=== PATIENT | male | born 1950 | race Caucasian/White ===

== ENCOUNTER 2019-04-16 14:13 | Emergency (ER) | payer MEDICARE ==
--- NOTE | 2019-04-16 14:39 | ED ---
Palpitations / Dysrhythmia - HPI Summary HPI Summary: Pt is a 68 y/o M presenting to the ED brought in by EMS for palpitations onset this morning. He states he was [place] the [place] [address] he began to feel lightheaded, diaphoretic, and his heart pounding like he was in [place]. It subsided for about ten minutes, then came back, which is when he called EMS. He denies chest pain and SOB. His rope tier is Dr. Cruz. - History of Current Complaint Chief Complaint: EDDysrhythmPalp Time Seen by Provider: 04/16/19 14:23 Hx Obtained From: Patient Onset/Duration: Sudden Onset, Lasting Minutes, Resolved Timing: Constant Severity Initially: Moderate Severity Currently: None Character: Fast, Pounding Aggravating: Nothing Alleviating: Nothing Associated Signs & Symptoms: Lightheadedness, Diaphoresis - Allergy/Home Medications Allergies/Adverse Reactions: Allergies Allergy/AdvReac Type Severity Reaction Status Date / Time No Known Allergies Allergy Verified 04/16/19 14:29 PMH/Surg Hx/FS Hx/Imm Hx Previously Healthy: Yes Endocrine/Hematology History: Denies: Hx Diabetes Cardiovascular History: Reports: Hx Angina, Hx Atrial Fibrillation, Hx Hypercholesterolemia, Hx Hypertension Denies: Hx Coronary Artery Disease, Hx Myocardial Infarction, Hx Valvular Heart Disease Respiratory History: Reports: Other Respiratory Problems/Disorders - SLEEP APNEA Denies: Hx Asthma, Hx Chronic Obstructive Pulmonary Disease (COPD) History: Denies: Hx Renal Disease Infectious Disease History: No Infectious Disease History: Denies: Traveled Outside the [place] in Last 30 Days - Family History Known Family History: Negative: Hypertension - Social History Alcohol Use: None Hx Substance Use: No Substance Use Type: Reports: None Hx Tobacco Use: No Smoking Status (MU): Never Smoked Tobacco Review of Systems Positive: Skin Diaphoresis Positive: Palpitations. Negative: Chest Pain Negative: Shortness Of Breath Neurological: Other - lightheaded All Other Systems Reviewed And Are Negative: Yes Physical Exam - Summary Physical Exam Summary: Appearance: The patient is well-nourished in no acute distress and in no acute pain. Skin: The skin is warm and dry and skin color reflects adequate perfusion. HEENT: The head is normocephalic and atraumatic. The pupils are equal and reactive. The conjunctivae are clear and without drainage. Nares are patent and without drainage. Mouth reveals moist mucous membranes and the throat is without erythema and exudate. The external ears are intact. The ear canals are patent and without drainage. The tympanic membranes are intact. Neck: The neck is supple with full range of motion and non-tender. There are no carotid bruits. There is no neck vein distension. Respiratory: Chest is non-tender. Lungs are clear to auscultation and breath sounds are symmetrical and equal. Cardiovascular: Heart is regular rate and rhythm. There is no murmur or rub auscultated. There is no peripheral edema and pulses are symmetrical and equal. Abdomen: The abdomen is soft and non-tender. There are normal bowel sounds heard in all four quadrants and there is no organomegaly palpated. Musculoskeletal: There is no back tenderness noted. Extremities are non-tender with full range of motion. There is good capillary refill. There is no peripheral edema or calf tenderness elicited. Neurological: Patient is alert and oriented to person, place and time. The patient has symmetrical motor strength in all four extremities. Cranial nerves are grossly intact. Deep tendon reflexes are symmetrical and equal in all four extremities. Psychiatric: The patient has an appropriate affect and does not exhibit any anxiety or depression. Triage Information Reviewed: Yes Vital Signs On Initial Exam: Initial Vitals Temp Pulse Resp BP Pulse Ox 97.2 F 75 18 193/80 100 04/16/19 14:21 04/16/19 14:21 04/16/19 14:21 04/16/19 14:21 04/16/19 14:21 Vital Signs Reviewed: Yes Diagnostics - Vital Signs Vital Signs Temp Pulse Resp BP Pulse Ox 04/16/19 14:21 97.2 F 75 18 193/80 100 - Laboratory Result Diagrams: 04/16/19 14:39 04/16/19 14:39 Lab Statement: Any lab studies that have been ordered have been reviewed, and results considered in the medical decision making process. - EKG 1416 Cardiac Rate: NL - 75bpm EKG Rhythm: Sinus Rhythm ST Segment: Normal Ectopy: None Summary of EKG Findings: EKG at 1416 shows NSR at 75bpm. Course/Dx - Course Course Of Treatment: Mr. Mcnamara was nontoxic in appearance is stable vital signs on arrival. He was kept on a monitor while EKG and labs including a delayed troponin and d-dimer were obtained. These were negative and his blood pressure was running moderately high. I recommended follow-up with his PCP and reassured him that nothing immediately dangerous was occurring. - Diagnoses Provider Diagnoses: Near syncope Discharge - Sign-Out/Discharge Documenting (check all that apply): Patient Departure Patient Received Moderate/Deep Sedation with Procedure: No - Discharge Plan Condition: Stable Disposition: HOME Referrals: Brian MO,Kenny Davidson [Primary Care Provider] - Additional Instructions: Please follow up with your primary care provider within the next 2-3 days. Return to the ED with any new or worsening symptoms. - Billing Disposition and Condition Condition: STABLE Disposition: Home - Attestation Statements Document Initiated by Scribe: Yes Documenting Scribe: Summer Parra Provider For Whom Greta is Documenting (Include Credential): Eugene Larsen MD. Scribe Attestation: Summer Schmidt, scribed for Eugene Larsen MD. on 04/16/19 at 1832. Scribe Documentation Reviewed: Yes Provider Attestation: The documentation as recorded by the Summer hernandez accurately reflects the service I personally performed and the decisions made by me, Eugene Larsen MD. Status of Scribe Document: Viewed
--- OUTSIDE RECORDS SUMMARY | 2019-04-16 14:52 | XMS REPORT | Continuity of Care Document ---
:1950 External Reference #:[id number] Author Name Meliza Dave Care Team Providers Name Role Phone Kayode Torres MD Primary Care Physician Unavailable Payers Date Identification Numbers Payment Provider Subscriber Effective: 2015 Policy Number: [id number] [employer] Nasima Magana Expires: 2017 PayID: [id number] [address] [address] [place] [address] Effective: 2017 Policy Number: [id number] [employer] Nasima Magana PayID: [id number] [address] [address] Attn: [place] [address] Problems Active Problems Provider Date Atrial fibrillation Robin Cruz M.D. Onset: 10/23/2011 Palpitations Robin Cruz M.D. Onset: 10/23/2011 Benign essential hypertension Robin Cruz M.D. Onset: 07/18/2013 Chest pain Robin Cruz M.D. Onset: 02/02/2014 Difficulty breathing Robin Cruz M.D. Onset: 02/02/2014 Obstructive sleep apnea syndrome Emilee Hodges MD Onset: 03/13/2015 Acute sinusitis Emilee Hodges MD Onset: 03/13/2015 Cough Wendie Bryan DNP, RN, REFUSE COLLECTOR SUPERVISOR- Onset: 03/30/2018 Family History Date Family Member(s) Observation Comments General non-contribitory Father due to Cancer () Mother Alive And Well Siblings 2 healthy siblings First Sister Alive And Well Social History Type Date Description Comments Sex Unknown Marital Status 2 adult children. Lives With Occupation [employer] retired 2015 Tobacco Use Start: Unknown Never Smoked Cigarettes ETOH Use Denies alcohol use Recreational Drug Use Denies Drug Use Tobacco Use Start: Unknown Patient has never smoked Smoking Status Reviewed: 04/12/19 Patient has never smoked Exercise Type/Frequency Exercises rarely Allergies, Adverse Reactions, Alerts Description No Known Drug Allergies Medications Active Medications SIG Qnty Indications Ordering Provider Date Flecainide Acetate take one tablet 180tabs Robin Benítez 02/04/2016 50mg by mouth twice Mandie Cruz Tablets daily Digoxin take one tablet 90tabs Robin Benítez 03/29/2014 125mcg Tablets by mouth once Mandie Cruz daily Potassium Chloride ER 1/2 by mouth 45tabs Robin Benítez 06/25/2011 every day Mandie Cruz 20Meq Tablets ER Atenolol 1/2 tablet twice 90tabs Robin Benítez 04/04/2011 25mg Tablets a day (resumed Mandie Cruz twice a day dosing 03/30/17) History Medications Ibnicholas Benítez 12/29/2018 - 90mg Capsules ER Mandie Cruz 04/11/2019 Simethicone tab by mouth 90caps Emilee Hodges, 11/05/2015 - 180mg every 6 hours 08/24/2017 Capsules as needed Advair HFA 2 puff twice a 2units R06.00 Emilee Hodges, 03/13/2015 - day 02/25/2017 115-21mcg/Act Aerosol Digoxin 1 po qd 30tabs Robin Benítez 04/09/2011 - 0.125mg Tablets Mandie Cruz 03/29/2014 Multaq 1 tablet by 30taramses Benítez 01/22/2011 - 400mg Tablets mouth every Mandie Cruz 01/31/2016 morning Multaq 1 po bid Robin Benítez 01/15/2011 - 400mg Tablets Mandie Cruz 01/22/2011 Cardizem CD 1 po qd 30caps Robin Benítez 07/16/2010 - 120mg Caps Mandie Cruz 07/22/2010 ER 24HR Aspir-81 1 po qd 30tabs Robin Benítez 07/16/2010 - 81mg Tablets Mandie Cruz 08/31/2018 Lisinopril 1 po qd 90tabs Robin Benítez 12/19/2009 - 5mg Tablets Mandie Cruz 07/16/2010 Nexium 1 po bid 90units Robin Benítez 12/19/2009 - 40mg Packet Mandie Cruz 07/25/2010 Atenolol 1 po bid 120tabs Robin Benítez 06/01/2009 - 25mg Tablets Mandie Cruz 04/04/2011 Atenolol 1 po qd 90tabs Robin Benítez 12/28/2007 - 25mg Tablets Mandie Cruz 06/01/2009 Aspirin 1 PO qd 30units Robin Benítez 11/30/2007 - 81mg Chewtabs Mandie Cruz 09/12/2008 Atenolol 1 PO qd 30tabs Robin Benítez 11/30/2007 - 25mg Tablets Mandie Cruz 12/28/2007 Xanax 1 PO qd prn 90tabs Robin Benítez 11/05/2007 - 0.25mg Tablets Mandie Cruz 12/19/2008 KCL 1 po qd 30units Robin Benítez - 20Meq Mandie Cruz 07/16/2010 Xanax 1 by mouth 30tabs Kayode Gonzalez - 0.25mg Tablets three times a Mandie Fuentes 08/31/2018 day as needed Dexalent 1 po qd Unknown - 60mg Capsules 03/20/2011 Multivitamins 1 po qd 90tabs Unknown - Tablets 08/31/2018 Augmentin po bid 20tabs Unknown - 875-125mg 09/15/2012 Tablets Viagra 1 by mouth as 6tabs Kayode F. - 50mg Tablets needed Mandie Fuentes 08/31/2018 Omeprazole 1 by mouth Unknown - 20mg every day 04/18/[address] Mattson CPT Code Status Date Vaccine Lot # [id number] Given 07/20/2014 Fluvirin Im 3Yrs And Older Vital Signs Date Vital Result Comment 04/12/2019 2:21pm Height 72 inches 6'0" Weight 212.25 lb with boots Heart Rate 66 /min radial, extra beats BP Systolic Sitting 152 mmHg LA, reg cuff BP Diastolic Sitting 76 mmHg LA, reg cuff BP Systolic Standing 152 mmHg LA, reg cuff BP Diastolic Standing 76 mmHg LA, reg cuff BMI (Body Mass Index) 28.8 kg/m2 Ejection Fraction 55%-60% echo 02/01/15 09/01/2018 10:31am Height 72 inches 6'0" Weight 207.38 lb Heart Rate 68 /min BP Systolic Sitting 144 mmHg Lue large cuff BP Diastolic Sitting 68 mmHg Lue large cuff Respiratory Rate 16 /min O2 % BldC Oximetry 97 % BMI (Body Mass Index) 28.1 kg/m2 Neck Circumference in inches 16.5 04/19/2018 3:01pm Weight 206.00 lb Heart Rate 76 /min BP Systolic 180 mmHg left arm reg BP Diastolic 78 mmHg left arm reg BP Systolic Sitting 156 mmHg la sit repeat. BP Diastolic Sitting 62 mmHg la sit repeat. 03/30/2018 8:55am Height 72 inches 6'0" Weight 205.12 lb Heart Rate 60 /min BP Systolic Sitting 140 mmHg Lue large cuff BP Diastolic Sitting 72 mmHg Lue large cuff Respiratory Rate 18 /min O2 % BldC Oximetry 97 % On Ra BMI (Body Mass Index) 27.8 kg/m2 08/25/2017 8:16am Height 72 inches 6'0" Weight 206.00 lb with boots Heart Rate 64 /min BP Systolic Sitting 160 mmHg LA reg cuff BP Diastolic Sitting 76 mmHg LA reg cuff BP Systolic Standing 132 mmHg la repeat sitting BP Diastolic Standing 67 mmHg la repeat sitting BMI (Body Mass Index) 27.9 kg/m2 Ejection Fraction 55% echo 02/26/17 02/26/2017 8:03am Height 72 inches 6'0" Weight 201.75 lb with shoes Heart Rate 60 /min BP Systolic Sitting 142 mmHg LA reg cuff BP Diastolic Sitting 68 mmHg LA reg cuff BMI (Body Mass Index) 27.4 kg/m2 12/10/2015 11:28am Height 72 inches 6'0" Weight 207.25 lb with shoes Heart Rate 58 /min BP Systolic Sitting 140 mmHg LA reg cuff BP Diastolic Sitting 70 mmHg LA reg cuff Respiratory Rate 16 /min BMI (Body Mass Index) 28.1 kg/m2 Ejection Fraction 55-60% date 02/01/15 ECHO 09/11/2015 8:57am Height 72 inches 6'0" Weight 200.00 lb Heart Rate 61 /min BP Systolic Sitting 142 mmHg BP Diastolic Sitting 78 mmHg Respiratory Rate 16 /min O2 % BldC Oximetry 8 % BMI (Body Mass Index) 27.1 kg/m2 07/11/2015 8:02am Height 72 inches 6'0" Heart Rate 54 /min BP Systolic 138 mmHg BP Diastolic 64 mmHg Respiratory Rate 14 /min O2 % BldC Oximetry 99 % 05/30/2015 9:07am Heart Rate 62 /min BP Systolic 152 mmHg BP Diastolic 62 mmHg Respiratory Rate 14 /min O2 % BldC Oximetry 98 % 04/16/2015 9:38am Height 72 inches 6'0" Weight 200.00 lb Heart Rate 68 /min BP Systolic 160 mmHg BP Diastolic 80 mmHg Respiratory Rate 14 /min O2 % BldC Oximetry 96 % BMI (Body Mass Index) 27.1 kg/m2 Neck Circumference in inches 15.5 03/13/2015 8:25am Height 72 inches 6'0" Weight 200.00 lb Heart Rate 62 /min BP Systolic Sitting 130 mmHg BP Diastolic Sitting 78 mmHg Respiratory Rate 18 /min Body Temperature 98.1 F O2 % BldC Oximetry 98 % BMI (Body Mass Index) 27.1 kg/m2 01/25/2015 2:38pm Height 72 inches 6'0" Weight 202.00 lb Heart Rate 58 /min BP Systolic Sitting 158 mmHg left arm, reg cuff BP Diastolic Sitting 82 mmHg left arm, reg cuff Respiratory Rate 16 /min BMI (Body Mass Index) 27.4 kg/m2 02/02/2014 11:11am Height 72 inches 6'0" Weight 194.00 lb with shoes Heart Rate 58 /min 56 sit and stand HR reg BP Systolic Sitting 146 mmHg LA reg cuff BP Diastolic Sitting 76 mmHg LA reg cuff BP Systolic Standing 150 mmHg LA reg cuff BP Diastolic Standing 80 mmHg LA reg cuff Respiratory Rate 16 /min BMI (Body Mass Index) 26.3 kg/m2 07/18/2013 1:18pm Height 72 inches 6'0" Weight 193.00 lb Heart Rate 59 /min BP Systolic 144 mmHg BP Diastolic 62 mmHg BMI (Body Mass Index) 26.2 kg/m2 09/15/2012 11:11am Height 72 inches 6'0" Weight 199.00 lb Heart Rate 66 /min BP Systolic 130 mmHg BP Diastolic 70 mmHg Respiratory Rate 16 /min BMI (Body Mass Index) 27.0 kg/m2 10/23/2011 8:51am Height 72 inches 6'0" Weight 193.00 lb Heart Rate 61 /min BP Systolic 120 mmHg BP Diastolic 62 mmHg BMI (Body Mass Index) 26.2 kg/m2 03/20/2011 3:16pm Height 72 inches 6'0" Weight 196.00 lb Heart Rate 60 /min BP Systolic 130 mmHg BP Diastolic 70 mmHg Respiratory Rate 16 /min BMI (Body Mass Index) 26.6 kg/m2 10/30/2010 11:36am Height 72 inches 6'0" Weight 196.00 lb Heart Rate 62 /min BP Systolic 120 mmHg BP Diastolic 70 mmHg Respiratory Rate 16 /min BMI (Body Mass Index) 26.6 kg/m2 07/16/2010 1:51pm Height 72 inches 6'0" Weight 190.00 lb Heart Rate 78 /min BP Systolic Sitting 110 mmHg BP Diastolic Sitting 60 mmHg BP Systolic Standing 124 mmHg BP Diastolic Standing 64 mmHg BMI (Body Mass Index) 25.8 kg/m2 12/19/2009 2:25pm Height 72 inches 6'0" Heart Rate 63 /min BP Systolic Sitting 140 mmHg BP Diastolic Sitting 76 mmHg 11/12/2009 2:13pm Height 72 inches 6'0" Weight 200.00 lb BMI (Body Mass Index) 27.1 kg/m2 12/19/2008 1:47pm Height 72 inches 6'0" Weight 191.00 lb Heart Rate 70 /min BP Systolic Sitting 132 mmHg BP Diastolic Sitting 60 mmHg BP Systolic Standing 120 mmHg BP Diastolic Standing 70 mmHg BMI (Body Mass Index) 25.9 kg/m2 09/12/2008 2:20pm Height 72 inches 6'0" Weight 199.00 lb Heart Rate 80 /min BP Systolic Sitting 130 mmHg BP Diastolic Sitting 70 mmHg BP Systolic Standing 130 mmHg BP Diastolic Standing 70 mmHg BMI (Body Mass Index) 27.0 kg/m2 03/14/2008 3:58pm Height 72 inches 6'0" Weight 189.00 lb Heart Rate 72 /min BP Systolic Sitting 140 mmHg BP Diastolic Sitting 70 mmHg BP Systolic Standing 150 mmHg BP Diastolic Standing 70 mmHg Respiratory Rate 16 /min BMI (Body Mass Index) 25.6 kg/m2 02/14/2008 3:39pm Height 72 inches 6'0" Weight 189.00 lb Heart Rate 64 /min BP Systolic Sitting 150 mmHg L BP Diastolic Sitting 80 mmHg L BMI (Body Mass Index) 25.6 kg/m2 Results Test Date Facility Test Result H/L Range Note Comp Metabolic Panel 01/06/2018 [facility] Sodium 138 mmol/L Low 139-[address] [place] [address] [phone] Potassium 4.4 mmol/L N 3.5-5.0 Chloride 103 mmol/L N 101-111 Co2 Carbon Dioxide 30 mmol/L N 22-32 Anion Gap 5 mmol/L N 2-11 Glucose 96 mg/dL N 70-100 Blood Urea Nitrogen 17 mg/dL N 6-24 Creatinine 0.92 mg/dL N 0.67-1.17 BUN/Creatinine Ratio 18.5 N 8-20 Calcium 9.9 mg/dL N 8.6-10.3 Total Protein 7.0 g/dL N 6.4-8.9 Albumin 4.8 g/dL N 3.2-5.2 Globulin 2.2 g/dL N 2-4 Albumin/Globulin Ratio 2.2 N 1-3 Total Bilirubin 0.80 mg/dL N 0.2-1.0 Alkaline Phosphatase 88 U/L N 34-104 Alt 30 U/L N 7-52 Ast 21 U/L N 13-39 Egfr Non- 82.6 >60 Egfr 106.2 >60 1 Order 01/06/2018 [employer] In-House EKG <pending> Laboratory test 01/06/2018 [facility] Digoxin 0.5 ng/ml Low 0.8-2.[address] [place] [address] [phone] CBC Auto Diff 01/06/2018 [facility] White Blood 7.1 10^3/uL N 3.5-10. [address] [place] [address] [phone] Red Blood Count 5.01 10^6/uL N 4.0-5.4 Hemoglobin 14.7 g/dL N 14.0-18.0 Hematocrit 42 % N 42-52 Mean Corpuscular Volume 83 fL N 80-94 Mean Corpuscular Hemoglobin 29 pg N 27-31 Mean Corpuscular HGB Conc 35 g/dL N 31-36 Red Cell Distribution Width 13 % N 10.5-15 Platelet Count 203 10^3/uL N 150-450 Mean Platelet Volume 8.6 um3 N 7.4-10.4 Abs Neutrophils 3.8 10^3/uL N 1.5-7.7 Abs Lymphocytes 2.2 10^3/uL N 1.0-4.8 Abs Monocytes 0.7 10^3/uL N 0-0.8 Abs Eosinophils 0.3 10^3/uL N 0-0.6 Abs Basophils 0.1 10^3/uL N 0-0.2 Abs Nucleated RBC 0 10^3/uL Granulocyte % 53.6 % N 38-83 Lymphocyte % 31.4 % N 25-47 Monocyte % 10.0 % High 0-7 Eosinophil % 4.0 % N 0-6 Basophil % 1.0 % N 0-2 Nucleated Red Blood Cells % 0 Laboratory test 01/06/2018 [facility] Magnesium 2.2 mg/dL N 1.9-2.[address] [place] [address] [phone] Laboratory test 06/11/2017 [facility] Digoxin 0.3 ng/ml Low 0.8-2.0 [address] [place] [address] [phone] Laboratory test 05/27/2016 [facility] Surgical SEE RESULT 3 , [address] [place] [address] Order [phone] CBC Auto Diff 04/10/2016 [facility] White Blood 6.6 N 3.5- 10.[address] Count 10^3/uL [place], [place] [id number] [phone] Red Blood Count 4.91 10^6/uL N 4.0-5.4 Hemoglobin 14.2 g/dL N 14.0-18.0 Hematocrit 41 % Low 42-52 Mean Corpuscular Volume 84 fL N 80-94 Mean Corpuscular Hemoglobin 29 pg N 27-31 Mean Corpuscular HGB Conc 34 g/dL N 31-36 Red Cell Distribution Width 13 % N 10.5-15 Platelet Count 201 10^3/uL N 150-450 Mean Platelet Volume 9 um3 N 7.4-10.4 Abs Neutrophils 3.8 10^3/uL N 1.5-7.7 Abs Lymphocytes 2.0 10^3/uL N 1.0-4.8 Abs Monocytes 0.5 10^3/uL N 0-0.8 Abs Eosinophils 0.2 10^3/uL N 0-0.6 Abs Basophils 0 10^3/uL N 0-0.2 Abs Nucleated RBC 0 10^3/uL N Granulocyte % 58.5 % N 38-83 Lymphocyte % 30.0 % N 25-47 Monocyte % 7.5 % N 1-9 Eosinophil % 3.3 % N 0-6 Basophil % 0.7 % N 0-2 Nucleated Red Blood Cells % 0.1 N Comp Metabolic Panel 04/10/2016 [facility] Sodium 137 mmol/L N 133-145 [address] [place] [address] [phone] Potassium 4.3 mmol/L N 3.5-5.0 Chloride 103 mmol/L N 101-111 Co2 Carbon Dioxide 27 mmol/L N 22-32 Anion Gap 7 mmol/L N 2-11 Glucose 104 mg/dL High 70-100 Blood Urea Nitrogen 18 mg/dL N 6-24 Creatinine 0.96 mg/dL N 0.67-1.17 BUN/Creatinine Ratio 18.8 N 8-20 Calcium 9.7 mg/dL N 8.6-10.3 Total Protein 7.4 g/dL N 6.4-8.9 Albumin 4.5 g/dL N 3.2-5.2 Globulin 2.9 g/dL N 2-4 Albumin/Globulin Ratio 1.6 N 1-3 Total Bilirubin 1.00 mg/dL N 0.2-1.0 Alkaline Phosphatase 64 U/L N 34-104 Alt 23 U/L N 7-52 Ast 19 U/L N 13-39 Egfr Non- 79.1 N >60 Egfr 101.7 N >60 5 Laboratory test finding 04/10/2016 [facility] Lipase 24 U/L N 11.0-82.[address] [place] [address] [phone] C Reactive Protein < 1.00 mg/L N < 5.00 6 Lactic Acid 1.4 mmol/L N 0.5-2.0 7 Urinalysis Profile 04/08/2016 [facility] Urine Color Yellow N [address] [place] [address] [phone] Urine Appearance Clear N Urine Specific [place] 1.018 N 1.010-1.030 Urine pH 6.0 N 5-9 Urine Urobilinogen Negative N Negative Urine Ketones Negative N Negative Urine Protein Negative N Negative Urine Leukocytes Negative N Negative Urine Blood Negative N Negative Urine Nitrite Negative N Negative Urine Bilirubin Negative N Negative Urine Glucose Negative N Negative Laboratory test 04/08/2016 [facility] Lactic Acid 1.0 mmol/L N 0.5-2.0 [address] [place] [address] [phone] CBC Auto Diff 04/08/2016 [facility] White Blood 7.1 10^3/uL N 3.5-10.[address] [place] [address] [phone] Red Blood Count 5.01 10^6/uL N 4.0-5.4 Hemoglobin 14.6 g/dL N 14.0-18.0 Hematocrit 42 % N 42-52 Mean Corpuscular Volume 84 fL N 80-94 Mean Corpuscular Hemoglobin 29 pg N 27-31 Mean Corpuscular HGB Conc 35 g/dL N 31-36 Red Cell Distribution Width 13 % N 10.5-15 Platelet Count 212 10^3/uL N 150-450 Mean Platelet Volume 9 um3 N 7.4-10.4 Abs Neutrophils 4.5 10^3/uL N 1.5-7.7 Abs Lymphocytes 2.0 10^3/uL N 1.0-4.8 Abs Monocytes 0.5 10^3/uL N 0-0.8 Abs Eosinophils 0.1 10^3/uL N 0-0.6 Abs Basophils 0.1 10^3/uL N 0-0.2 Abs Nucleated RBC 0 10^3/uL N Granulocyte % 63.0 % N 38-83 Lymphocyte % 28.0 % N 25-47 Monocyte % 6.6 % N 1-9 Eosinophil % 1.5 % N 0-6 Basophil % 0.9 % N 0-2 Nucleated Red Blood Cells % 0 N Comp Metabolic Panel 04/08/2016 [facility] Sodium 133 mmol/L N 133-[address] [place] [address] [phone] Potassium 4.6 mmol/L N 3.5-5.0 Chloride 99 mmol/L Low 101-111 Co2 Carbon Dioxide 27 mmol/L N 22-32 Anion Gap 7 mmol/L N 2-11 Glucose 104 mg/dL High 70-100 Blood Urea Nitrogen 15 mg/dL N 6-24 Creatinine 0.99 mg/dL N 0.67-1.17 BUN/Creatinine Ratio 15.2 N 8-20 Calcium 9.8 mg/dL N 8.6-10.3 Total Protein 7.6 g/dL N 6.4-8.9 Albumin 4.6 g/dL N 3.2-5.2 Globulin 3.0 g/dL N 2-4 Albumin/Globulin Ratio 1.5 N 1-3 Total Bilirubin 1.20 mg/dL High 0.2-1.0 Alkaline Phosphatase 66 U/L N 34-104 Alt 22 U/L N 7-52 Ast 19 U/L N 13-39 Egfr Non- 76.3 N >60 Egfr 98.2 N >60 9 Laboratory test finding 04/08/2016 [facility] Lipase 57 U/L N 11.0-82.[address] [place] [address] [phone] C Reactive Protein 1.29 mg/L N < 5.00 10 CBC Auto Diff 01/29/2015 [facility] White Blood 8.2 10^3/uL N 4.8-10.[address] [place] [address] [phone] Red Blood Count 5.03 10^6/uL N 4.0-5.4 Hemoglobin 15.4 g/dL N 14.0-18.0 Hematocrit 43 % N 42-52 Mean Corpuscular Volume 86 fL N 80-94 Mean Corpuscular Hemoglobin 31 pg N 27-31 Mean Corpuscular HGB Conc 36 g/dL N 31-36 Red Cell Distribution Width 13 % N 10.5-15 Platelet Count 201 10^3/uL N 150-450 Mean Platelet Volume 9 um3 N 7.4-10.4 Abs Neutrophils 5.2 10^3/uL N 1.5-7.7 Abs Lymphocytes 2.0 10^3/uL N 1.0-4.8 Abs Monocytes 0.7 10^3/uL N 0-0.8 Abs Eosinophils 0.3 10^3/uL N 0-0.6 Abs Basophils 0.1 10^3/uL N 0-0.2 Abs Nucleated RBC 0.03 10^3/uL N Granulocyte % 62.9 % N 38-83 Lymphocyte % 24.4 % Low 25-47 Monocyte % 8.4 % N 1-9 Eosinophil % 3.7 % N 0-6 Basophil % 0.6 % N 0-2 Nucleated Red Blood Cells % 0.4 N Laboratory test 01/29/2015 [facility] B Type Natriuretic 40 pg/ mL N [address] [place] [address] [phone] Erythrocyte Sed Rate 10 mm/Hr N 0-20 13 Iron & Iron Binding 01/29/2015 [facility] Iron 144 g/dL N 50 -[address] [place] [address] [phone] Unsaturated Iron Binding 233 g/dL N Total Iron Binding Capacity 377 g/dL N 250-450 % Iron Saturation 38 % N 15-55 Lipid Panel - 01/29/2015 [facility] Creatine Kinase 115 U/L N 10-223 [address] [place] [address] [phone] Comp Metabolic 01/29/2015 [facility] Sodium 134 N 133-[address] mmol/[place] [address] [phone] Potassium 4.3 mmol/L N 3.5-5.0 Chloride 99 mmol/L Low 101-111 Co2 Carbon Dioxide 29 mmol/L N 22-32 Anion Gap 6 mmol/L N 2-11 Glucose 107 mg/dL High 70-100 Blood Urea Nitrogen 15 mg/dL N 6-24 Creatinine 0.96 mg/dL N 0.67-1.17 BUN/Creatinine Ratio 15.6 N 8-20 Calcium 9.5 mg/dL N 8.6-10.3 Total Protein 6.8 g/dL N 6.4-8.9 Albumin 4.7 g/dL N 3.2-5.2 Globulin 2.1 g/dL N 2-4 Albumin/Globulin Ratio 2.2 N 1-3 Total Bilirubin 1.10 mg/dL High 0.2-1.0 Alkaline Phosphatase 71 U/L N 34-104 Alt 32 U/L N 7-52 Ast 25 U/L N 13-39 Egfr Non- 79.4 N >60 Egfr 102.1 N >60 15 Lipid Profile 01/29/2015 [facility] Triglycerides 184 mg/dL N 16 (Trig/Chol/HDL) [address] [place] [address] [phone] Cholesterol 196 mg/dL N 17 HDL Cholesterol 41.6 mg/dL N 18 LDL Cholesterol 118 mg/dL N 19 Laboratory test 01/29/2015 [facility] Magnesium 2.0 mg/dL N 1.9-2.7 20 finding [address] [place] [address] [phone] C Reactive Protein 1.87 mg/L N < 5.00 21 TSH (Thyroid Stimulating Horm) 1.72 IU/mL N 0.34-5.60 22 Lyme Disease Serology Negative N Negative 23 Katie (Anti-Nuclear AB) Screen Negative N Negative 24 Rheumatoid Factor <15 IU/mL N <15 25 Beta Hydroxy Butyrate 0.1 mmol/L N <0.4 26 Laboratory test 08/11/2014 [facility] Digoxin 0.4 ng/ml Low 0.8-2.0 finding [address] [place] [address] [phone] Magnesium 2.1 mg/dL N 1.9-2.7 Basic Metabolic Panel 04/10/2011 [facility] Sodium 141 mmol/L 135-145 [address] [place] [address] [phone] Potassium 4.4 mmol/L 3.5-5.0 Chloride 108 mmol/L 101-111 Co2 (Carbon Dioxide) 28.0 mmol/L 22-32 Anion Gap 5.0 mmol/L 2-11 27 Glucose 96 mg/dL 70-100 BUN 11 mg/dL 6-24 Creatinine 0.90 mg/dL 0.50-1.40 One Over Creatinine 1.10 BUN/Creatinine Ratio 12.2 8-20 Calcium 9.4 mg/dL 8.1-9.9 eGFR Non- 86.7 > 60 eGFR 111.5 > 60 28 CBC Auto Diff 04/10/2011 [facility] White Blood 6.0 CUMM 4.8- 10.8 [address] [facility] [place] [address] [phone] Red Cell Count 4.59 CUMM Low 4.6-6.2 Hemoglobin 13.5 g/dL Low 14.0-18.0 Hematocrit 40 % Low 42-52 Mean Corpuscular Volume 86 um3 80-94 Mean Corpuscular Hemoglob 29 pg 27-31 Mean Corpuscular HGB Cone 34 g/dL 32-36 Redcell Distribution WDTH 13 % 10.5-15 Platelet Count 205 CUMM 150-450 Mean Platelet Volume 9.0 um3 7.4-10.4 Gran % 50.7 % 38-83 Lymph % 34.5 % 25-47 Mononuclear % 9.5 % High 1-9 Eosinophil % 4.6 % 0-6 Basophil % 0.7 % 0-2 Abs Lymphs 2.1 1.0-4.8 Abs Mononuclear 0.6 0-0.8 Absolute Neutrophil Count 3.0 1.5-7.7 Abs Eosinophils 0.3 0-0.6 Abs Basophils 0 0-0.2 Laboratory test 04/10/2011 [facility] TSH 0.85 MIU/ML 0.34- 5.60 finding [address] [place] [address] [phone] Liver Function 02/18/2011 [facility] Total Protein 6.3 GM/DL 6.2-8.1 Panel [address] [place] [address] [phone] Albumin 4.2 GM/DL 3.6-5.4 Globulin 2.1 GM/DL 2-4 Albumin/Globulin Ratio 2.0 1-3 Bilirubin Total 1.2 mg/dL 0.4-1.5 29 Bilirubin Direct 0.1 mg/dL 0.1-0.5 Indirect Bilirubin 1.1 mg/dL High 0.3-1.0 30 Alkaline Phosphatase 69 U/L 39-117 Alt (SGPT) 20 U/L 17-63 Ast (Sgot) 19 U/L 12-42 Lipid Profile 02/18/2011 [facility] Triglyceride 97 mg/dL 40- 200 (Trig/Chol/HDL) [address] [place] [address] [phone] Cholesterol 171 mg/dL Less Than 200 31 High Density Lipoprotein 44 mg/dL 40-60 32 Cholesterol/HDL Ratio 3.89 AVERAGE 1-4.97 Low Density Lipoprotein 108 mg/dL High Less Than 100 33 Basic Metabolic Panel 01/23/2010 [facility] Sodium 136 mmol/L 135-[address] [place] [address] [phone] Potassium 4.3 mmol/L 3.5-5.0 Chloride 102 mmol/L 101-111 Co2 (Carbon Dioxide) 28.0 mmol/L 22-32 Anion Gap 6.0 mmol/L 2-11 34 Glucose 97 mg/dL 70-100 35 BUN 13 mg/dL 6-24 Creatinine 0.60 mg/dL 0.50-1.40 One Over Creatinine 1.60 BUN/Creatinine Ratio 21.7 High 8-20 Calcium 9.8 mg/dL 8.1-9.9 36 eGFR Non- 147.6 > 60 eGFR 178.6 > 60 37 CBC With 01/03/2010 [facility] White Blood 5.0 CUMM 4.8-10.8 Electronic Diff [address] [place] [address] [phone] Red Cell Count 4.73 CUMM 4.6-6.2 Hemoglobin 14.0 g/dL 14.0-18.0 Hematocrit 40 % Low 42-52 Mean Corpuscular Volume 84 um3 80-94 Mean Corpuscular Hemoglob 30 pg 27-31 Mean Corpuscular HGB Cone 35 g/dL 32-36 Redcell Distribution WDTH 13 % 10.5-15 Platelet Count 189 CUMM 150-450 Mean Platelet Volume 8.6 um3 7.4-10.4 Gran % 57.9 % 38-83 Lymph % 24.8 % Low 25-47 Mononuclear % 12.9 % High 1-9 Eosinophil % 3.8 % 0-6 Basophil % 0.6 % 0-2 Abs Lymphs 1.2 1.0-4.8 Abs Mononuclear 0.7 0-0.8 Absolute Neutrophil Count 2.9 1.5-7.7 Abs Eosinophils 0.2 0-0.6 Abs Basophils 0 0-0.2 Laboratory test 01/03/2010 [facility] TSH 1.27 MIU/ML 0.34- 5.[address] [place] [address] [phone] Basic Metabolic 01/03/2010 [facility] Sodium 133 mmol/L Low 135-145 Panel [address] [place] [address] [phone] Potassium 4.2 mmol/L 3.5-5.0 Chloride 99 mmol/L Low 101-111 Co2 (Carbon Dioxide) 29.0 mmol/L 22-32 Anion Gap 5.0 mmol/L 2-11 38 Glucose 105 mg/dL High 70-100 39 BUN 13 mg/dL 6-24 Creatinine 0.90 mg/dL 0.50-1.40 One Over Creatinine 1.10 BUN/Creatinine Ratio 14.4 8-20 Calcium 9.5 mg/dL 8.1-9.9 40 eGFR Non- 92.4 > 60 eGFR 111.9 > 60 41 Iron & Iron Binding 01/03/2010 [facility] Iron Total 94 g/dL 45-182 Capacity [address] [place] [address] [phone] Unsaturated Iron Binding 278 g/dL Total Iron Binding Capacity 372 g/dL 250-450 % Iron Saturation 25 % 15-55 Comp Metabolic Panel 12/22/2008 [facility] Sodium 138 mmol/L 135-145 [address] [place] [address] [phone] Potassium 4.2 mmol/L 3.5-5.0 Chloride 103 mmol/L 101-111 Co2 (Carbon Dioxide) 29.0 mmol/L 22-32 Anion Gap 6.0 mmol/L 2-11 42 Glucose 107 mg/dL High 70-100 43 BUN 13 mg/dL 6-24 Creatinine 1.00 mg/dL 0.50-1.40 One Over Creatinine 1.00 BUN/Creatinine Ratio 13.0 8-20 Calcium 9.6 mg/dL 8.1-9.9 44 Total Protein 7.0 GM/DL 6.2-8.1 Albumin 4.3 GM/DL 3.6-5.4 Globulin 2.7 GM/DL 2-4 Albumin/Globulin Ratio 1.6 1-3 Bilirubin Total 1.4 mg/dL 0.4-1.5 Alkaline Phosphatase 65 U/L 39-117 Alt (SGPT) 22 U/L 17-63 Ast (Sgot) 20 U/L 12-42 Lipid Profile 12/22/2008 [facility] Triglyceride 68 mg/dL 40- 200 (Trig/Chol/HDL) [address] [place] [address] [phone] Cholesterol 174 mg/dL Less Than 200 45 High Density Lipoprotein 45 mg/dL 40-60 46 Cholesterol/HDL Ratio 3.87 AVERAGE 1-4.97 Low Density Lipoprotein 115 mg/dL High Less Than 100 47 Laboratory test 12/22/2008 [facility] CPK (Creatine 166 U/L 0 -[address] Kinase) [place] [address] [phone] Laboratory test 12/22/2008 [facility] Fungal Cult JOHN finding [address] Other [place] [address] [phone] Laboratory test 12/22/2008 [facility] TSH 0.82 MIU/ML 0.34- 5.[address] [place] [address] [phone] CBC With 12/22/2008 [facility] White Blood 6.0 CUMM 4.8-10.8 Electronic Diff [address] [place] [address] [phone] Red Cell Count 4.56 CUMM Low 4.6-6.2 Hemoglobin 13.3 g/dL Low 14.0-18.0 Hematocrit 38 % Low 42-52 Mean Corpuscular Volume 83 um3 80-94 Mean Corpuscular Hemoglob 29 pg 27-31 Mean Corpuscular HGB Cone 35 g/dL 32-36 Redcell Distribution WDTH 13 % 10.5-15 Platelet Count 237 CUMM 150-450 Mean Platelet Volume 8.0 um3 7.4-10.4 Gran % 52.0 % 38-83 Lymph % 34.5 % 25-47 Mononuclear % 9.8 % High 1-9 Eosinophil % 2.9 % 0-6 Basophil % 0.8 % 0-2 Abs Lymphs 2.1 1.0-4.8 Abs Mononuclear 0.6 0-0.8 Absolute Neutrophil Count 3.1 1.5-7.7 Abs Eosinophils 0.2 0-0.6 Abs Basophils 0.1 0-0.2 1 Because ethnic data is not always readily available, this report includes an eGFR for both -Americans and non- Americans. The National Kidney Disease Education Program (NKDEP) does not endorse the use of the MDRD equation for patients that are not between the ages of 18 and 70, are , have extremes of body size, muscle mass, or nutritional status, or are non- or non-. According to the National Kidney Foundation, irrespective of diagnosis, the stage of the disease is based on the level of kidney function: Stage Description GFR(mL/min/1.73 m(2)) 1 Kidney damage with normal or decreased GFR 90 2 Kidney damage with mild decrease in GFR 60-89 3 Moderate decrease in GFR 30-59 4 Severe decrease in GFR 15-29 5 Kidney failure <15 (or dialysis) 2 Copy Result to: KAYODE FUENTES ([id number]) 3 [id number] SEE RESULT BELOW Name: NASIMA MAGANA : [address]: Tylor Bolden MD Acct: [id number] Unit: [id number] AGE: 65 Location: [facility] Re05/27/16 SEX: M Status: DEP REF SPEC: [id number] HILARY: 05/27/16-133 [facility] DR: Tylor Bolden MD REQ: [id number] RECD: 05/27/16 STATUS: CIERRA SERVIN DR: Kayode Fuentes MD _ ORDERED: LEVEL IV COMMENTS: [id number] FINAL DIAGNOSIS Gastroesophageal junction, biopsy: -- Squamous and columnar mucosa with chronic inflammation. -- Negative for intestinal metaplasia and dysplasia. COMMENT: The findings were discussed with Dr. Bolden. CLINICAL HISTORY Abdominal bloating and fullness POST-OPERATIVE DIAGNOSIS Crico - negative; body of esophagus - normal; gastroesophageal junction mild erosive esophagitis, small hiatal hernia; stomach - normal, no polyps or mucus; pylorus and duodenum - negative. Conclusions/Plan: Mild esophagitis (gastroesophageal reflux disease); biopsy pending GROSS DESCRIPTION The specimen is received in formalin labeled, [facility] [place] Biopsies, and consists of three moreno-white to moreno-brown irregular to polypoid soft tissue fragments measuring 0.4 x 0.2 x 0.2 cm, 0.4 x 0.3 x 0.2 cm and 0.5 x 0.3 x 0.2 cm, which are entirely submitted in one cassette. Signed (signature on file) Bere Dorman MD 1155 END OF REPORT * ML=Testing performed at Main Lab DEPARTMENT OF PATHOLOGY, [address] [place] [address] Michele Escobar M.D. Director [facility] # [id number] 5 Because ethnic data is not always readily available, this report includes an eGFR for both -Americans and non- Americans. The National Kidney Disease Education Program (NKDEP) does not endorse the use of the MDRD equation for patients that are not between the ages of 18 and 70, are , have extremes of body size, muscle mass, or nutritional status, or are non- or non-. According to the National Kidney Foundation, irrespective of diagnosis, the stage of the disease is based on the level of kidney function: Stage Description GFR(mL/min/1.73 m(2)) 1 Kidney damage with normal or decreased GFR 90 2 Kidney damage with mild decrease in GFR 60-89 3 Moderate decrease in GFR 30-59 4 Severe decrease in GFR 15-29 5 Kidney failure <15 (or dialysis) 6 Acute inflammation: >10.00 7 [facility] Severe Sepsis and Septic Shock Management Bundle Measure requires all lactic acids initially measuring >2.0 mmol/L be repeated. 8 [facility] Severe Sepsis and Septic Shock Management Bundle Measure requires all lactic acids initially measuring >2.0 mmol/L be repeated. 9 Because ethnic data is not always readily available, this report includes an eGFR for both -Americans and non- Americans. The National Kidney Disease Education Program (NKDEP) does not endorse the use of the MDRD equation for patients that are not between the ages of 18 and 70, are , have extremes of body size, muscle mass, or nutritional status, or are non- or non-. According to the National Kidney Foundation, irrespective of diagnosis, the stage of the disease is based on the level of kidney function: Stage Description GFR(mL/min/1.73 m(2)) 1 Kidney damage with normal or decreased GFR 90 2 Kidney damage with mild decrease in GFR 60-89 3 Moderate decrease in GFR 30-59 4 Severe decrease in GFR 15-29 5 Kidney failure <15 (or dialysis) 10 Acute inflammation: >10.00 11 PT IS FASTING 12 >100 to <200 pg/mL: likely compensated congestive heart failure (CHF) 200 to 400 pg/mL: likely moderate CHF >400 pg/mL: likely moderate to severe CHF [facility] 13 PT IS FASTING 14 PT IS FASTING 15 Because ethnic data is not always readily available, this report includes an eGFR for both -Americans and non- Americans. The National Kidney Disease Education Program (NKDEP) does not endorse the use of the MDRD equation for patients that are not between the ages of 18 and 70, are , have extremes of body size, muscle mass, or nutritional status, or are non- or non-. According to the National Kidney Foundation, irrespective of diagnosis, the stage of the disease is based on the level of kidney function: Stage Description GFR(mL/min/1.73 m(2)) 1 Kidney damage with normal or decreased GFR 90 2 Kidney damage with mild decrease in GFR 60-89 3 Moderate decrease in GFR 30-59 4 Severe decrease in GFR 15-29 5 Kidney failure <15 (or dialysis) 16 Desirable <150 Borderline high 150-199 High 200-499 Very High >500 17 Desirable <200 Borderline high 200-239 High >239 18 Low <40 Desirable: 40-60 High: >60 19 Desirable: <100 mg/dL Near Optimal: 100-129 mg/dL Borderline High: 130-159 mg/dL High: 160-189 mg/dL Very High: >189 mg/dL 20 PT IS FASTING 21 Acute inflammation: >10.00 22 PT IS FASTING 23 Serologic response to B. burgdorferi infection is not detected, but cannot rule out early infection during which low or undetectable antibody levels to B. burgdorferi may be present. If clinically indicated, a new serum specimen should be submitted in 7-14 days. Test Performed by: [place] [address] Ergonomics Technician: Asif Wooten II, M.D., Ph.D. 24 PT IS FASTING 25 Test Performed by: [place] [address] Ergonomics Technician: Asif Wooten II, M.D., Ph.D. 26 Test Performed by: [place] [address] Ergonomics Technician: Asif Wooten II, M.D., Ph.D. 27 Anion gap measurement may be of limited value in the presence of any alkalosis, especially in a combined acid base disorder. . 28 Because ethnic data is not always readily available, this report includes an eGFR for both -Americans and non- Americans. The National Kidney Disease Education Program (NKDEP) does not endorse the use of the MDRD equation for patients that are not between the ages of 18 and 70, are , have extremes of body size, muscle mass, or nutritional status, or are non- or non-. According to the National Kidney Foundation, irrespective of diagnosis, the stage of the disease is based on the level of kidney function: Stage Description GFR(mL/min/1.73 m(2)) 1 Kidney damage with normal or decreased GFR 90 2 Kidney damage with mild decrease in GFR 60-89 3 Moderate decrease in GFR 30-59 4 Severe decrease in GFR 15-29 5 Kidney failure <15 (or dialysis) 29 A metabolite of Naproxen, O-desmethylnaproxen, has been shown to interfere with the Jendrassik-Trotwood method for measuring total bilirubin. Samples from patients who have taken Naproxen have shown spurious elevation in total bilirubin levels. 30 Please note updated reference range, effective 04/25/10 31 CHOLESTEROL INTERPRETATION: Desirable: Less than 200 MG/DL Borderline-High Risk: 200-239 MG/DL High-Risk: 240 MG/DL and over 32 HDL INTERPRETATION: Undesirable: High Risk: Less than 40 MG/DL Desirable: Low Risk: Greater than 60 MG/DL 33 LDL INTERPRETATION: Low Risk Optimal Level: LDL Less than 100 MG/DL Near or Above Optimal: LDL 100-129 MG/DL Borderline High Risk: LDL 130-159 MG/DL High Risk: LDL 160-189 MG/DL Very High Risk: LDL Greater than 189 MG/DL 34 Anion gap measurement may be of limited value in the presence of any alkalosis, especially in a combined acid base disorder. . 35 Note change in reference range as of 05/25/08. The change was based on recommendations from the [employer]. 36 Please note change in reference range effective 08 . 37 Because ethnic data is not always readily available, this report includes an eGFR for both -Americans and non- Americans. The National Kidney Disease Education Program (NKDEP) does not endorse the use of the MDRD equation for patients that are not between the ages of 18 and 70, are , have extremes of body size, muscle mass, or nutritional status, or are non- or non-. According to the National Kidney Foundation, irrespective of diagnosis, the stage of the disease is based on the level of kidney function: Stage Description GFR(mL/min/1.73 m(2)) 1 Kidney damage with normal or decreased GFR 90 2 Kidney damage with mild decrease in GFR 60-89 3 Moderate decrease in GFR 30-59 4 Severe decrease in GFR 15-29 5 Kidney failure <15 (or dialysis) 38 Anion gap measurement may be of limited value in the presence of any alkalosis, especially in a combined acid base disorder. . 39 Note change in reference range as of 05/25/08. The change was based on recommendations from the [employer]. 40 Please note change in reference range effective 08 . 41 Because ethnic data is not always readily available, this report includes an eGFR for both -Americans and non- Americans. The National Kidney Disease Education Program (NKDEP) does not endorse the use of the MDRD equation for patients that are not between the ages of 18 and 70, are , have extremes of body size, muscle mass, or nutritional status, or are non- or non-. According to the National Kidney Foundation, irrespective of diagnosis, the stage of the disease is based on the level of kidney function: Stage Description GFR(mL/min/1.73 m(2)) 1 Kidney damage with normal or decreased GFR 90 2 Kidney damage with mild decrease in GFR 60-89 3 Moderate decrease in GFR 30-59 4 Severe decrease in GFR 15-29 5 Kidney failure <15 (or dialysis) 42 Anion gap measurement may be of limited value in the presence of any alkalosis, especially in a combined acid base disorder. . 43 Note change in reference range as of 05/25/08. The change was based on recommendations from the [employer]. 44 Please note change in reference range effective 08 . 45 CHOLESTEROL INTERPRETATION: Desirable: Less than 200 MG/DL Borderline-High Risk: 200-239 MG/DL High-Risk: 240 MG/DL and over 46 HDL INTERPRETATION: Undesirable: High Risk: Less than 40 MG/DL Desirable: Low Risk: Greater than 60 MG/DL 47 LDL INTERPRETATION: Low Risk Optimal Level: LDL Less than 100 MG/DL Near or Above Optimal: LDL 100-129 MG/DL Borderline High Risk: LDL 130-159 MG/DL High Risk: LDL 160-189 MG/DL Very High Risk: LDL Greater than 189 MG/DL Procedures Date Code Description Status 04/12/2019 20638 EKG Tracing & Interpretation Completed 04/19/2018 04101 EKG Tracing & Interpretation Completed 02/05/2018 34689 Event Monitor/Phys Review/Interp. Completed 01/24/2018 33806 Holter Monitor Review (24 hr)dr review & interp only Completed 01/21/2018 03934 ECG Monitor/Recording W/Visual Superimposition Scanning Completed 01/06/2018 34846 EKG Tracing & Interpretation Completed 08/25/2017 03100 EKG Tracing & Interpretation Completed 02/26/2017 44032 EKG Tracing & Interpretation Completed 04/30/2016 85212755 Colonoscopy Completed 01/30/2016 04315 Treadmill Interp/Report Only Completed 01/30/2016 65765 Stress Test Supervsn W/Out I/R Completed 01/09/2016 56821 ECHO Stress Test Incl Perf Contiuous ekg Monitoring Completed W/Phys Superv 12/22/2015 83271 Holter Monitoring 24 HR New Completed 12/20/2015 12630 Holter Monitoring 24 HR New Completed 12/10/2015 76197 EKG Tracing & Interpretation Completed 05/17/2015 40650 Sleep Study Unattended,HRT Rate,Oxygen Sat,Resp Completed Effort/Airflow 04/30/2015 15607 Sleep Study Unattended,HRT Rate,Oxygen Sat,Resp Completed Effort/Airflow 03/21/2015 83413 Sleep Study Unattended,HRT Rate,Oxygen Sat,Resp Completed Effort/Airflow 02/13/2015 11837 Holter Monitor Review (24 hr)dr review & interp only Completed 02/13/2015 12106 ECG Monitor/Recording W/Visual Superimposition Scanning Completed 02/02/2015 20636 Diffusing Capacity Completed 02/02/2015 37749 Pulmonary Function><Bronchodil Completed 02/01/2015 78619 ECHO Transthoracic, Real-Time 2D With Doppler And Color Completed Flow 01/25/2015 50963 EKG Tracing & Interpretation Completed 02/02/2014 70589 EKG Tracing & Interpretation Completed 07/18/2013 27438 EKG Tracing & Interpretation Completed 09/15/2012 93882 EKG Tracing & Interpretation Completed 10/23/2011 86584 EKG Tracing & Interpretation Completed 03/20/2011 67692 EKG Tracing & Interpretation Completed 11/18/2010 63488 EKG, Interpretation Only Completed 10/30/2010 44367 EKG Tracing & Interpretation Completed 07/16/2010 12102 EKG Tracing & Interpretation Completed 12/19/2009 34361 EKG Tracing & Interpretation Completed 12/19/2009 23316 EKG Tracing & Interpretation Completed 11/12/2009 76851 EKG Tracing & Interpretation Completed 01/15/2009 [id number] Colonoscopy Completed 12/25/2008 64165 ECHO Stress Test Incl Perf Contiuous ekg Monitoring Completed W/Phys Superv 12/19/2008 14457 EKG Tracing & Interpretation Completed 09/12/2008 98779 EKG Tracing & Interpretation Completed 03/14/2008 42700 EKG Tracing & Interpretation Completed 02/14/2008 04221 EKG Tracing & Interpretation Completed 11/05/2007 03713 ECHO/Stress Completed 11/05/2007 76004 ECHO/Stress Completed 11/05/2007 05630 ECHO/Stress Completed 11/05/2007 99457 Event Monitor/Phys Review/Interp. Completed 11/05/2007 91140 Cardiac Event Monitor/Recording Completed 11/05/2007 67193 Cardiac Event Monitor/Recording Completed 11/05/2007 80255 Stress Test Completed 11/05/2007 43158 Stress Test Completed 11/05/2007 06145 Stress Test Completed Encounters Type Date Location Provider Dx Diagnosis Office Visit 09/01/2018 [facility] Emilee Hodges, R06.02 Shortness of 11:00a [facility] stephanie Wilson I50.9 Heart failure, unspecified G47.33 Obstructive sleep apnea (adult) (pediatric) Office Visit 04/19/2018 2:40p [facility] Robin Benítez G47.33 Obstructive sleep Mandie Cruz apnea (adult) (pediatric) I48.0 Paroxysmal atrial fibrillation R00.2 Palpitations R03.0 Elevated blood-pressure reading, w/o diagnosis of htn Office Visit 03/30/2018 Pulmonjohann And Wendie G47.33 Obstructive sleep 9:00a [facility] GWENDOLYN Bryan, RN, apnea (adult) [facility] REFUSE COLLECTOR SUPERVISOR-BC (pediatric) R05 Cough Office Visit 08/25/2017 8:40a [facility] Robin Benítez I48.0 Paroxysmal atrial Mauser, M.D. fibrillation R06.00 Dyspnea, unspecified R03.0 Elevated blood-pressure reading, w/o diagnosis of htn Office Visit 02/26/2017 8:20a [facility] Robin Bentíez I48.0 Paroxysmal atrial Mauser, M.D. fibrillation R06.00 Dyspnea, unspecified R03.0 Elevated blood-pressure reading, w/o diagnosis of htn Office Visit 12/10/2015 11:40a [facility] Robin Benítez G47.33 Obstructive sleep Mandie Cruz apnea (adult) (pediatric) I48.0 Paroxysmal atrial fibrillation R06.00 Dyspnea, unspecified Office Visit 09/11/2015 9:15a [facility]ology And Emilee G47.33 Obstructive sleep [facility] Tracie apnea (adult) [facility] (pediatric) Office Visit 07/11/2015 8:15a Pulmonology And Emilee G47.33 Obstructive sleep [facility] Tracie apnea (adult) [facility] (pediatric) Office Visit 05/30/2015 9:30a Pulmonology And Emilee 327.23 Obstructive Sleep [facility] Tracie Apnea Adult & Junior Project Coordinator Pediatric 786.09 Dyspnea & Respiratory Abnormalities Other Office Visit 04/16/2015 Pulmonology And Emilee 786.09 Dyspnea & 10:00a [facility] Tracie Respiratory Junior Project Coordinator Abnormalities Other 327.23 Obstructive Sleep Apnea Adult & Pediatric 461.9 Sinusitis Acute Unspec Office Visit 03/13/2015 Pulmonology And Emilee 786.09 Dyspnea & 9:00a [facility] Tracie Respiratory Junior Project Coordinator Abnormalities Other 327.23 Obstructive Sleep Apnea Adult & Pediatric 461.9 Sinusitis Acute Unspec Office Visit 01/25/2015 2:40p Elyse Benítez 427.31 Atrial Cardiology Mandie Cruz Fibrillation 401.1 Hypertension Benign 786.09 Dyspnea & Respiratory Abnormalities Other 729.1 Myalgia & Myositis Unspec 428.0 Congestive Heart Failure Unspecified 727.00 Synovitis & Tenosynovitis Unspec Office Visit 02/06/2014 1:30p Steve Benítez 478.19 Other Disease Of MD Crystal Fuentes M.D. Nasal Cavity And Sinuses Office Visit 02/02/2014 11:20a Elyse Benítez 427.31 Atrial Cardiology Mandie Cruz Fibrillation 785.1 Palpitations 401.1 Hypertension Benign 786.50 Pain Chest Unspec 786.09 Dyspnea & Respiratory Abnormalities Other Office Visit 07/18/2013 1:40p Elyse Benítez 427.31 Atrial Cardiology Mandie Cruz Fibrillation 785.1 Palpitations 401.1 Hypertension Benign Office Visit 07/18/2013 4:15p [facility] Camilla Benítez 466.0 Bronchitis Acute MD Crystal Fuentes M.D. 461.9 Sinusitis Acute Unspec 607.84 Impotence Organic Origin Office Visit 09/15/2012 11:20a [facility] Robin Benítez 427.31 Atrial Cardiology Mandie Cruz Fibrillation 785.1 Palpitations 401.1 Hypertension Benign Office Visit 10/23/2011 9:20a Elyse Benítez 427.[place] Atrial Cardiology Mandie Cruz Fibrillation 785.1 Palpitations Office Visit 03/20/2011 3:20p [facility] Robin Benítez 427.[place] Atrial Cardiology Mandie Cruz Fibrillation 785.1 Palpitations Office Visit 10/30/2010 11:20a [facility] Robin Benítez 427.[place] Atrial Cardiology Mandie Cruz Fibrillation 785.1 Palpitations Office Visit 07/16/2010 1:40p [facility] Robin Benítez 401.1 Hypertension Mandie Cruz Benign 427.31 Atrial Fibrillation 785.1 Palpitations Office Visit 01/09/2010 3:00p [facility] Nurse Visit cc 401.1 Hypertension Cardiology Benign Office Visit 12/19/2009 2:00p [facility] Robin Benítez 427.[place] Atrial Cardiology Mandie Cruz Fibrillation 785.1 Palpitations 786.50 Pain Chest Unspec Office Visit 11/12/2009 2:20p [facility] Robin Benítez 427.[place] Atrial Cardiology Mandie Cruz Fibrillation 786.50 Pain Chest Unspec 785.1 Palpitations Office Visit 12/19/2008 2:00p [facility] Robin Benítez 427.[place] Atrial Cardiology Mandie Cruz Fibrillation 780.4 Dizziness & Giddiness 785.1 Palpitations 786.50 Pain Chest Unspec Office Visit 09/12/2008 2:20p [facility] Robin Benítez 427.[place] Atrial Cardiology Mandie Cruz Fibrillation 780.4 Dizziness & Giddiness 785.1 Palpitations 786.50 Pain Chest Unspec Office Visit 03/14/2008 3:40p [facility] Robin Benítez 427.[place] Atrial Cardiology Mandie Cruz Fibrillation 780.4 Dizziness & Giddiness Office Visit 02/14/2008 3:40p [facility] Robin Benítez 785.1 Palpitations Mandie Cruz 786.50 Pain Chest Unspec 780.2 Syncope & Collapse Office Visit 11/05/2007 12:30p [facility] Robin Benítez 785.1 Palpitations Mandie Cruz 786.50 Pain Chest Unspec 780.2 Syncope & Collapse Plan of Treatment 04/12/2019 - Robin Cruz M.D.R06.02 Shortness of breathFollow up:ov VIROLOGIST 3I48.0 Paroxysmal atrial qjmhwdqvlwolR54.1 Atrial premature depolarizationFollow up:ov 10 mR03.0 Elevated blood-pressure reading without diagnosis of hyperte
[2019-04-16 14:56] LABS: ABS Basophils 0.1 10^3/ul (0-0.2); ABS Eosinophils 0.2 10^3/ul (0-0.6); ABS Lymphocytes 1.8 10^3/ul (1.0-4.8); ABS Monocytes 0.9 10^3/ul (0-0.8); ABS Neutrophils 8.8 10^3/ul (1.5-7.7); Eosinophil % 1.5 %; Hematocrit 42 % (42-52); Hemoglobin 14.6 g/dL (14.0-18.0); Lymphocyte % 15.2 %; Mean Corpuscular HGB Conc 35 g/dL (31-36); Mean Corpuscular Hemoglobin 29 pg (27-31); Mean Corpuscular Volume 84 fL (80-94); Mean Platelet Volume 8.5 fL (7.4-10.4); Nucleated Red Blood Cells % 0.1; Platelet Count 202 10^3/uL (150-450); Red Cell Distribution Width 13 % (10-15); White Blood Count 11.8 10^3/uL (3.5-10.8)
[2019-04-16 15:21] LABS: Albumin 4.7 g/dL (3.2-5.2); Albumin/Globulin Ratio 1.7 (1-3); BUN/Creatinine Ratio 15.3 (8-20); Calcium 9.4 mg/dL (8.6-10.3); EGFR African American 92.6 (>60); EGFR Non-African American 76.5 (>60); Globulin 2.7 g/dL (2-4); Potassium 4.2 mmol/L (3.5-5.0); Total Bilirubin 0.6 mg/dL (0.2-1.0); Total Protein 7.4 g/dL (6.4-8.9)
[2019-04-16 15:24] LABS: Troponin I 0.01 ng/mL (<0.04)
[2019-04-16 16:37] LABS: TSH (Thyroid Stimulating Horm) 2.02 mcIU/mL (0.34-5.60)
[2019-04-16] MEDS ORDERED: NS 0.9% 1000 ML** 1,000 ML IV ONE (16:38)
[2019-04-16 18:23] VITALS: BP 169/80
== END 2019-04-16 18:30 | disposition home or self-care (01) ==
LOC: ED 14:13
DX: R55 Syncope and collapse (principal); I48.91 Unspecified atrial fibrillation; I10 Essential (primary) hypertension; E78.00 Pure hypercholesterolemia, unspecified
CPT/HCPCS: 36415; 80053; 83605; 83735; 84443; 84484; 85025; 85379; 93005; 96360; 99283

== ENCOUNTER 2020-10-24 13:59 | Observation (INO) ==
[2020-10-24 15:33] LABS: ABS Basophils 0.1 10^3/ul (0-0.2); ABS Eosinophils 0.1 10^3/ul (0-0.6); ABS Lymphocytes 1.5 10^3/ul (1.0-4.8); ABS Monocytes 0.7 10^3/ul (0-0.8); Eosinophil % 0.9 %; Hematocrit 36 % (42-52); Hemoglobin 12.6 g/dL (14.0-18.0); Lymphocyte % 14.7 %; Mean Corpuscular HGB Conc 35 g/dL (31-36); Mean Corpuscular Hemoglobin 30 pg (27-31); Mean Corpuscular Volume 85 fL (80-94); Mean Platelet Volume 8.4 fL (7.4-10.4); Platelet Count 252 10^3/uL (150-450); Red Blood Count 4.21 10^6 /uL (4.18-5.48); Red Cell Distribution Width 13 % (10-15); White Blood Count 10.4 10^3/uL (3.5-10.8)
[2020-10-24 15:35] LABS: Urine Appearance Cloudy; Urine Bilirubin Negative (Negative); Urine Blood Negative (Negative); Urine Color Yellow; Urine Glucose Negative (Negative); Urine Ketones Negative (Negative); Urine Nitrite Negative (Negative); Urine Protein Negative (Negative); Urine Specific Gravity 1.021 (1.010-1.030); Urine Urobilinogen Negative (Negative)
[2020-10-24 16:04] LABS: Albumin 4.3 g/dL (3.2-5.2); Albumin/Globulin Ratio 1.7 (1-3); BUN/Creatinine Ratio 15.3 (8-20); C Reactive Protein 6.72 mg/L (<8.01); Calcium 9.3 mg/dL (8.6-10.3); EGFR Non-African American 76.1 (>60); Globulin 2.5 g/dL (2-4); Potassium 4.4 mmol/L (3.5-5.0); Total Bilirubin 0.7 mg/dL (0.2-1.0); Total Protein 6.8 g/dL (6.4-8.9)
[2020-10-24] MEDS ORDERED: Iohexol 300 (CONTRAST) 10 ML SDV IV ONE (16:38)
[2020-10-24] MEDS: Aspirin EC 81 mg TAB.EC (enteric coated) PO SCH (22:51)
[2020-10-25] MEDS: diPHENhydraMINE 25 mg TAB PO PRN ×2 (00:57→21:48)
[2020-10-25 05:45] LABS: ABS Basophils 0.1 10^3/ul (0-0.2); ABS Eosinophils 0.2 10^3/ul (0-0.6); ABS Lymphocytes 2.4 10^3/ul (1.0-4.8); ABS Monocytes 0.8 10^3/ul (0-0.8); ABS Neutrophils 5.2 10^3/ul (1.5-7.7); Eosinophil % 2.6 %; Hematocrit 35 % (42-52); Hemoglobin 12.4 g/dL (14.0-18.0); Lymphocyte % 27.2 %; Mean Corpuscular HGB Conc 36 g/dL (31-36); Mean Corpuscular Hemoglobin 30 pg (27-31); Mean Corpuscular Volume 84 fL (80-94); Mean Platelet Volume 7.7 fL (7.4-10.4); Platelet Count 248 10^3/uL (150-450); Red Blood Count 4.13 10^6 /uL (4.18-5.48); Red Cell Distribution Width 13 % (10-15); White Blood Count 8.7 10^3/uL (3.5-10.8)
[2020-10-25 05:51] LABS: INR 1.23 (0.82-1.09)
[2020-10-25 06:02] LABS: Anion Gap 5 mmol/L (2-11); BUN/Creatinine Ratio 16.2 (8-20); Blood Urea Nitrogen 16 mg/dL (6-24); CO2 Carbon Dioxide 28 mmol/L (22-32); Calcium 9.2 mg/dL (8.6-10.3); Chloride 104 mmol/L (101-111); EGFR Non-African American 75.2 (>60); Glucose 119 mg/dL (70-100); Potassium 4.9 mmol/L (3.5-5.0); Sodium 137 mmol/L (135-145); Total Protein 6.7 g/dL (6.4-8.9)
[2020-10-25 07:11] LABS: Digoxin 1.1 ng/ml (0.8-2.0); LDH 127 U/L (140-271)
[2020-10-25] MEDS: Potassium Chlor 10 meq TAB PO SCH (07:46)
[2020-10-25 12:47] LABS: % Iron Saturation 15 % (15-55); Iron 54 ug/dL (50-212); Total Iron Binding Capacity 353 mcg/dL (250-450); Transferrin 252 mg/dL (203-362); Unsaturated Iron Binding < 338 ug/dL
[2020-10-25 13:04] LABS: Ferritin 154.8 ng/mL (24-336)
[2020-10-25] MEDS ORDERED: NS 0.9% 1000 ml BAG 1,000 ML IV ONE (15:00)
[2020-10-25 15:15] LABS: Body Fluid Source Pleural Fluid
[2020-10-25 17:11] LABS: Body Fluid Mono 52 %; Body Fluid Other Cells 35
[2020-10-25] MEDS: Aspirin EC 81 mg TAB.EC (enteric coated) PO SCH (21:47)
[2020-10-26 05:21] LABS: ABS Basophils 0.1 10^3/ul (0-0.2); ABS Eosinophils 0.3 10^3/ul (0-0.6); ABS Lymphocytes 2.1 10^3/ul (1.0-4.8); ABS Monocytes 0.9 10^3/ul (0-0.8); Eosinophil % 2.9 %; Hematocrit 34 % (42-52); Hemoglobin 11.9 g/dL (14.0-18.0); Lymphocyte % 22.4 %; Mean Corpuscular HGB Conc 36 g/dL (31-36); Mean Corpuscular Hemoglobin 30 pg (27-31); Mean Corpuscular Volume 85 fL (80-94); Mean Platelet Volume 8.6 fL (7.4-10.4); Platelet Count 220 10^3/uL (150-450); Red Blood Count 3.96 10^6 /uL (4.18-5.48); Red Cell Distribution Width 13 % (10-15); White Blood Count 9.3 10^3/uL (3.5-10.8)
[2020-10-26] MEDS: Potassium Chlor 10 meq TAB PO SCH (08:59)
[2020-10-26 12:05] LABS: Albumin, BF 3.5 g/dL; Fluid Type, Albumin PLEURAL; Fluid Type, Glucose PLEURAL; Fluid Type, Protein, Total PLEURAL; Glucose, BF 34 mg/dL
[2020-10-26] MEDS ORDERED: Iohexol 350 (CONTRAST) 500 ML MDV IV ONE (13:05)
[2020-10-26] MEDS ORDERED: Lorazepam PYXIS KEY ONE (13:39)
[2020-10-26] MEDS ORDERED: LORazepam 2 mg VIAL 1 ml ONE (13:40)
[2020-10-26 14:13] LABS: Lactate Dehydrogenase, BF 1005 U/L
[2020-10-26 14:58] VITALS: BP 130/58
[2020-10-26 15:15] LABS: Body Fluid Source Pleural Fluid
[2020-10-26 17:21] LABS: Body Fluid Mono 8 %; Body Fluid Other Cells 5
[2020-10-27 10:18] LABS: Fluid Type: PLEURAL
[2020-10-29 14:28] LABS: Fluid Type, Protein, Total PLEURAL
[2020-11-16 17:50] LABS: LNGPR Tissue ID CN21-112
== END 2020-10-26 18:00 | disposition home or self-care (01) ==
LOC: SSU 13:59 → ED 13:59 → SSU 20:34
PROVIDERS: ADMIT Internal Medicine; ATTEND Internal Medicine